=== PATIENT | male | born 1985 | race African-American/Black ===

== ENCOUNTER 2025-07-29 08:45 | Outpatient (CLI) | payer BC, SELFPAY ==
--- NOTE | 2025-07-29 09:15 | NEURO_ITS ---
Impression: # Non-insulin dependent diabetic complains of numbness of feet. ? # Normal motor/sensory Nerve Conduction Study. ? # Normal Needle/ EMG exam. ? 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 Nerve Conduction Studies ?Stim Site NR Peak (ms) P-T Amp (?V) Site1 Site2 Delta-P (ms) Dist (cm) Hardeep (m/s) Left Median Anti Sensory (2-3nd Digit) Wrist ? 3.7 49.1 Wrist 2-3nd Digit 3.7 14.0 38 Wrist ? 3.8 37.4 Wrist 2-3nd Digit 3.7 14.0 38 Right Median Anti Sensory (2-3nd Digit) Wrist ? 3.9 41.0 Wrist 2-3nd Digit 3.9 14.0 36 Wrist ? 3.9 45.9 Wrist 2-3nd Digit 3.9 14.0 36 Left Radial Anti Sensory (Base 1st Digit) Wrist ? 2.4 13.4 Wrist Base 1st Digit 2.4 0.0 Right Radial Anti Sensory (Base 1st Digit) Wrist ? 2.9 13.5 Wrist Base 1st Digit 2.9 0.0 Left Sup Fibular Anti Sensory (Ant Lat Mall) 14 cm ? 3.2 15.1 14 cm Ant Lat Mall 3.2 16.0 50 Right Sup Fibular Anti Sensory (Ant Lat Mall) 14 cm ? 3.6 10.1 14 cm Ant Lat Mall 3.6 16.0 44 Left Sural Anti Sensory (Lat Mall) Calf ? 3.4 26.2 Calf Lat Mall 3.4 16.0 47 Right Sural Anti Sensory (Lat Mall) Calf ? 3.6 15.2 Calf Lat Mall 3.6 16.0 44 Left Ulnar Anti Sensory (5th Digit) Wrist ? 2.8 38.9 Wrist 5th Digit 2.8 14.0 50 Right Ulnar Anti Sensory (5th Digit) Wrist ? 2.8 31.3 Wrist 5th Digit 2.8 14.0 50 ?Stim Site NR Onset (ms) O-P Amp (mV) Site1 Site2 Delta-0 (ms) Dist (cm) Hardeep (m/s) Left Median Motor (Abd Poll Brev) Wrist ? 4.1 7.5 Elbow Wrist 5.5 31.0 56 Elbow ? 9.6 9.0 Right Median Motor (Abd Poll Brev) Wrist ? 4.5 6.9 Elbow Wrist 6.4 33.0 52 Elbow ? 10.9 5.9 Left Peroneal Motor (Vastus Med) Ankle ? 4.9 0.3 Popit Ankle 9.3 47.0 51 Popit ? 14.2 0.8 Right Peroneal Motor (Vastus Med) Ankle ? 4.7 1.1 Popit Ankle 8.3 43.0 52 Popit ? 13.0 5.1 Left Tibial Motor (Abd Farfan Brev) Ankle ? 5.3 1.8 Knee Ankle 9.5 47.0 49 Knee ? 14.8 2.8 Right Tibial Motor (Abd Farfan Brev) Ankle ? 5.5 2.1 Knee Ankle 9.3 44.0 47 Knee ? 14.8 1.1 Left Ulnar Motor (Abd Dig Minimi) Wrist ? 2.7 7.9 A Elbow Wrist 6.1 34.0 56 A Elbow ? 8.8 6.3 B Elbow Wrist 5.1 28.0 55 B Elbow ? 7.8 6.8 Right Ulnar Motor (Abd Dig Minimi) Wrist ? 3.0 7.2 A Elbow Wrist 6.4 34.0 53 A Elbow ? 9.4 6.1 B Elbow Wrist 5.2 28.0 54 B Elbow ? 8.2 5.9 F Wave Studies ?NR F-Lat (ms) L-R F-Lat (ms) Left Median (Mrkrs) (Abd Poll Brev) ? 32.44 0.95 Right Median (Mrkrs) (Abd Poll Brev) ? 33.39 0.95 Left Peroneal (Mrkrs) (EDB) ? 57.97 2.88 Right Peroneal (Mrkrs) (EDB) ? 55.09 2.88 Left Tibial (Mrkrs) (Abd Hallucis) ? 57.19 Right Tibial (Mrkrs) (Abd Hallucis)??? NO RESPONSE NR Left Ulnar (Mrkrs) (Abd Dig Min) ? 34.74 0.00 Right Ulnar (Mrkrs) (Abd Dig Min) ? 34.74 0.00 Electromyography ?Side Muscle Nerve Root Ins Act Fibs Amp Dur Recrt Comment Right 1stDorInt Ulnar C8-T1 Nml Nml Nml Nml Nml Right Ext Indicis Radial (Post Int) C7-8 Nml Nml Nml Nml Nml Right Ext Digitorum Radial (Post Int) C7-8 Nml Nml Nml Nml Nml Right BrachioRad Radial C5-6 Nml Nml Nml Nml Nml Right PronatorTeres Median C6-7 Nml Nml Nml Nml Nml Right Abd Poll Brev Median C8-T1 Nml Nml Nml Nml Nml Right ABD Dig Min Ulnar C8-T1 Nml Nml Nml Nml Nml Right FlexPolLong Median (Ant Int) C7-8 Nml Nml Nml Nml Nml Right Abd Poll Long Radial (Post Int) C7-8 Nml Nml Nml Nml Nml Right AntTibialis Dp Br Fibular L4-5 Nml Nml Nml Nml Nml Right Gastroc Tibial S1-2 Nml Nml Nml Nml Nml Right Fibularis Long Sup Br Fibular L5-S1 Nml Nml Nml Nml Nml Right Flex Dig Long Tibial L5-S2 Nml Nml Nml Nml Nml Right Ext Dig Brev Dp Br Fibular L5, S1 Nml Nml Nml Nml Nml Right QuadratusFem QuadFemoris L4-5, S1 Nml Nml Nml Nml Nml Left AntTibialis Dp Br Fibular L4-5 Nml Nml Nml Nml Nml Left Gastroc Tibial S1-2 Nml Nml Nml Nml Nml Left Fibularis Long Sup Br Fibular L5-S1 Nml Nml Nml Nml Nml Left Flex Dig Long Tibial L5-S2 Nml Nml Nml Nml Nml Left Ext Dig Brev Dp Br Fibular L5, S1 Nml Nml Nml Nml Nml Left QuadratusFem QuadFemoris L4-5, S1 Nml Nml Nml Nml Nml Left 1stDorInt Ulnar C8-T1 Nml Nml Nml Nml Nml Left Ext Indicis Radial (Post Int) C7-8 Nml Nml Nml Nml Nml Left Ext Digitorum Radial (Post Int) C7-8 Nml Nml Nml Nml Nml Left BrachioRad Radial C5-6 Nml Nml Nml Nml Nml Left PronatorTeres Median C6-7 Nml Nml Nml Nml Nml Left Abd Poll Brev Median C8-T1 Nml Nml Nml Nml Nml Left ABD Dig Min Ulnar C8-T1 Nml Nml Nml Nml Nml Left FlexPolLong Median (Ant Int) C7-8 Nml Nml Nml Nml Nml Left Abd Poll Long Radial (Post Int) C7-8 Nml Nml Nml Nml Nml
--- OUTSIDE RECORDS SUMMARY | 2025-07-29 09:32 | XMS_ITS | Clinical Summary ---
Author Organization [facility] lin Address [address] [place] [address] Care Team Providers Care Physical Fitness Teacher Name Role Phone Pcp, Elsy Primary Care Provider [phone] Social History Tobacco Use Types Packs/Day Years Used Date Smoking Tobacco: Never Assessed Sex and Gender Information Value Date Recorded Sex Assigned at Not on file Legal Sex Male 8:07 PM EDT Gender Identity Not on file Sexual Orientation Not on file Plan of Treatment Not on file Medical Devices Not on file Care Teams Physical Fitness Teacher Relationship Specialty Start Date End Date Elsy Meek PCP - General Family Medicine 01/17/22
--- OUTSIDE RECORDS SUMMARY | 2025-07-29 09:32 | XMS_ITS | Encounter Summary ---
Author Organization [facility] Address [address] [place] [address] Care Team Providers Care Marketing Program Manager Name Role Phone Benny Ocasio MD Unavailable [phone] Markus Steele MD Unavailable Unavailable Pcp, [facility] Primary Care Provider Unavailable Ann Ryan APRN-CABIN SUPERVISOR Unavailable [phone] Moy Preciado MD Primary Care Provider Reason for Visit * Reason Comments Refill Request Encounter Details Date Type Department Care Team (Late st Contact Info) Description 12/29/2024 Refill [facility] - Internal Medicine [address] [address] Shawanda Mclain MD [address] [facility] [address] [place] [address] Refill Request Social History Tobacco Use Types Packs/Day Years Used Date Smoking Tobacco: Former Cigarettes 0.1 Q uit: 01/13/2016 Smokeless Tobacco: Never Alcohol Use Standard Drinks/Week Comments Not Currently 0 (1 standard drink = 0.6 oz pur e alcohol) rare PHQ-2 Answer Date Recorded Patient Health Questionnaire-2 Score 0 11/14/2023 Hunger Vital Sign Answer Date Recorded Within the past 12 months, y ou worried that your food would run out before you got the money to buy more. Never true 12/31/19 22 Within the past 12 months, t he food you bought just didn't last and you didn't have money to get more. 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 Answer Date of Assessment Author No 08/21/2024 2:26 PM Love Patino RN * Is person blind or have serious difficulty seeing? Answer Date of Assessment Author No 08/21/2024 2:26 PM Love Patino RN * Does person have serious difficulty walking/climbing stairs? Answer Date of Assessment Author No 08/21/2024 2:26 PM Love Patino RN * Does person have difficulty dressing/bathing? Answer Date of Assessment Author No 08/21/2024 2:26 PM Love Patino RN * Does person have difficulty doing errands alone? Answer Date of Assessment Author No 08/21/2024 2:26 PM Love Patino RN documented as of this encounter Mental Status * Does person have difficulty concentrating/remembering/making decisions? Answer Entry Date Author No 08/21/2024 2:26 PM Love Patino RN documented in this encounter Plan of Treatment Upcoming Encounters Date Type Department Care Team (Late st Contact Info) Description 08/21/2025 9:00 AM PROFESSOR OF SOCIOLOGY Office Visit [facility] [address] [facility] [address] [place] [address] Carol Celeste, CORPORATE DEVELOPMENT INTERN-CABIN SUPERVISOR [id number] [facility] [address] [place] [address] 06/30/2026 3:45 PM PROFESSOR OF SOCIOLOGY Office Visit [facility] - Pulmonology [address], [address] [place] [address] Benny Ocasio MD [address] [facility] [address] [place] [address] documented as of this encounter Goals Goal Patient Goal Type Associated Problems Recent Progress Patient-Stated? Author Blood Pressure < 140/90 Blood Pressure 124/80(2024 3:14 PM PROFESSOR OF SOCIOLOGY) No Hanny Nava MA HEMOGLOBIN A1C < 7.0 Result Component 5.9( 11:00 AM PROFESSOR OF SOCIOLOGY) No Hanny Nava MA documented as of this encounter Visit Diagnoses Not on filedocumented in this encounter Care Teams Marketing Program Manager Relationship Specialty Start Date End Date Pcp, [facility]- PCP - General 06/13/24 05/25/25 Ann Ryan APRN-CABIN SUPERVISOR [id number] [email or web address] [address] [place] [address] PCP - Attributed-[employer] 11/12/24 07/01/25 Moy Preciado MD [address] [place] [address] [phone] PCP - General Internal Medicine 05/26/25 Benny Ocasio MD [address] [place] [address] Internal Medicine Sleep Medicine 03/14/14 Markus Steele MD [address] [place] [address] Ophthalmology 08/29/17 documented as of this encounter
--- OUTSIDE RECORDS SUMMARY | 2025-07-29 09:32 | XMS_ITS | Clinical Summary ---
Author Organization [facility] Address [address] [place] [address] Care Team Providers Care Adult Education Manager Name Role Phone Benny Ocasio MD Unavailable [phone] Markus Steele MD Unavailable Unavailable Moy Preciado MD Primary Care Provider Source Comments [facility],non-owned Affiliates and Associated Physician Practices is amultiple site organization consisting of ambulatory clinics and hospital sitesin [place], [place], [place] and [place]. This disclosure is being madepursuant to the Care Everywhere program and may not contain all information available regarding this patient. Last updated [email or web address] Allergies No known active allergies Medications * Be aware that medications may not be up to date on this document. Alwaysverify current medications with the patient. Lancets (ONETOUCH DELICA PLUS 33G EXTRA FINE LANCET)Indications :Type 2 diabetes mellitus with hyperglycemia, without long-term current use of insulin (HCC) USE DIRECTED 100 Each 3 05/13/20 22 Active cyclobenzaprine (Flexeril) 10 MG tablet Take 0.5 (one-half) tablet to 1 (one) tablet by mouth 3 times daily as needed for Muscle Spasms 90 tablet 1 04/07/20 23 Active atorvastatin (Lipitor) 20 MG tabletIndications: Hyperlipidemia, unspecified hyperlipidemia type TAKE 1 TABLET BY MOUTH EVERY DAY 90 tablet 1 02/06/20 24 Active losartan (Cozaar) 50 MG tabletIndications: Essential hypertension Take 1 (one) tablet by mouth once daily 90 tablet 1 08/16/19 25 Active fluticasone propionate (Flonase) 50 MCG/ACT nasal spray 1 spray to each nostril twice per day 16 g 1 08/16/19 25 Active acetaminophen (Tylenol) 160 MG/5ML solution Take 31.25 mL by mouth every 8 hours 08/22/19 25 Active ondansetron, disintegrating, (Zofran ODT) 4 MG tablet Take 1 (one) tablet by mouth every 6 hours as needed for Nausea/Vomiting Allow tablet to dissolve on the tongue 20 tablet 5 11:40 AM UNIX MANAGER 08/22/19 25 Active magnesium hydroxide (Milk Of Magnesia) 400 MG/5ML suspension Take 15 mL by mouth as needed for Constipation 08/22/19 25 Active ALPRAZolam (Xanax) 0.25 MG tablet Take 1 (one) tablet by mouth nightly as needed for Anxiety Active vitamin D, ergocalciferol, (Drisdol) 1.25 MG (16373 UT) capsule TAKE 1 CAPSULE BY MOUTH ONE TIME PER WEEK FOR LOW VITAMIN D. 02/14/20 25 Active omeprazole (PriLOSEC) 20 MG capsule Take 1 (one) capsule by mouth 2 times daily, before breakfast and supper -- to start after surgery 60 capsule 5 02/21/20 25 Active tirzepatide (Mounjaro) 7.5 MG/0.5ML injectionIndicatio ns:Controlled type 2 diabetes mellitus without complication, without long-term current use of insulin ([facility]) Inject 7.5 (seven and one-half) mg subcutaneously every 7 days (once a week) for 28 days 2 mL 04/10/20 25 Active tirzepatide (Mounjaro) 10 MG/0.5ML injectionIndicatio ns:Controlled type 2 diabetes mellitus without complication, without long-term current use of insulin ([facility]),Bariatric surgery status,Gastroesoph ageal reflux disease without esophagitis Inject 10 (ten) mg subcutaneously every 7 days (once a week) for 28 days 2 mL 04/29/20 25 Active famotidine (Pepcid) 20 MG tabletIndications: Bariatric surgery status,Gastroesoph ageal reflux disease without esophagitis TAKE 1 TABLET BY MOUTH EVERYDAY AT BEDTIME 30 tablet 2 05/01/20 25 Active pantoprazole EC (Protonix) 40 MG tabletIndications: Bariatric surgery status,Gastroesoph ageal reflux disease without esophagitis TAKE 1 (ONE) TABLET BY MOUTH 2 TIMES DAILY 60 tablet 2 05/01/20 25 Active vitamin E (Tocopheryl) 400 UNIT capsule Take 1 (one) capsule by mouth once daily 30 capsule 2 05/07/20 25 Active phytonadione OTC (Vitamin K) 100 MCG tablet Take 1 (one) tablet by mouth daily with food 30 tablet 2 05/07/20 25 Active tirzepatide (Mounjaro) 12.5 MG/0.5ML injectionIndicatio ns:Morbid obesity (HCC),BMI 45.0-49.9, adult ([facility]),Controlled type 2 diabetes mellitus without complication, without long-term current use of insulin ([facility]) INJECT THE CONTENTS OF 1 PEN UNDER THE SKIN ONCE EVERY 7 DAYS 2 mL 06/25/20 25 Active Vitamin K 100 MCG TABS Take 1 (one) tablet by mouth once 05/10/20 25 Active E-400 180 MG (400 UNIT) capsule Take 1 (one) capsule by mouth once daily 05/07/20 25 Active tirzepatide (Mounjaro) 15 MG/0.5ML injectionIndicatio ns:Type 2 Diabetes Mellitus Inject 15 (fifteen) mg subcutaneously every 7 days (once a week) Reasons: Type 2 Diabetes 6 mL 2 07/08/20 25 Active Active Problems Problem Noted Date Diagnosed Date Morbid obesity 08/21/2024 Obesity hypoventilation syndrome 11/25/2019 Hyperlipidemia 06/29/2016 Nocturnal hypoxemia 04/13/2015 HTN (hypertension) 12/10/2013 Diet-controlled diabetes mellitus 02/18/2013 Onychomycosis 11/07/2012 BEN treated with BiPAP 11/07/2012 Resolved Problems Problem Noted Date Diagnosed Date Resolved Date BMI 50.0-59.9, adult 12/29/2021 025 BMI 60.0-69.9, adult 11/07/2012 022 Elevated BP 11/07/2012 12/10/2013 Encounters Date Type Department Care Team Description 07/08/2025 3:20 PM UNIX MANAGER Office Visit [facility] [address] [place] [address], [facility] [address] [place] [address] Kiko Garcia MD Controlled type 2 diabetes mellitus without complication, without long-term current use of insulin (HCC) (Primary Dx); Other specified intestinal malabsorption (HCC); S/P bariatric surgery 07/01/2025 3:15 PM UNIX MANAGER Office Visit [facility] - Pulmonology [address] [facility], [address] [place] [address] Benny Ocasio MD BEN treated with BiPAP (Primary Dx); Obesity hypoventilation syndrome (HCC); Nocturnal hypoxemia; Morbid obesity (HCC); Primary hypertension 06/25/2025 Refill [facility] [address] [place] [address], [facility] [address] [place] [address] Kiko Garcia MD Refill Request 05/26/2025 7:23 AM CDT - 05/26/2025 11:59 PM CDT Hospital Encounter [facility] Imaging Services - Ultrasound [address] [place] [address] Carol Celeste APRN-CNP Discharge Disposition: Home or Self Care 05/23/2025 Travel 05/23/2025 Orders Only [facility] [address] [place] [address], [facility] [address] [place] [address] Carol Celeste APRN-CNP Morbid obesity (HCC) ; Bariatric surgery status; Elevated bilirubin 05/07/2025 3:40 PM CDT Office Visit [facility] [address] [place] [address], [facility] [address] [place] [address] Kiko Garcia MD Controlled type 2 diabetes mellitus without complication, without long-term current use of insulin (HCC) (Primary Dx); Morbid obesity (HCC); BMI 45.0-49.9, adult (HCC); S/P bariatric surgery 05/01/2025 Refill [facility] [address] [place] [address], [facility] [address] [place] [address] Huckstep, Carol Laurie, GRADER PATROL-TELECOMMUNICATIONS REPAIRER Refill Request from Last 3 Months Immunizations Immunization Administration Dates Next Due Covid Moburst primary monoval ent 12+ yr 0.3mL Purple cap 12/18/2020,11/27/2020 DT (AGE 0-7) 01/31/1989, 5,1984,1983 HEP B VACCINE 03/14/2000 HEP B VACCINE, ADULT 3 DOSE 08/29/2017, 4,12/10/2013 HEP B VACCINE, PED/ADOL 03/14/2000 Hep A Peds 3 Dose 03/14/2000 HepB Unspecified formulation 12/21/1998,02/24/19 98 INFLUENZA VACCINE 04/28/2019 INFLUENZA VACCINE, CELL CULT URE, QUADR. (FLUCELVAX QUADRIVALENT; 6MO+) (CCIIV4) 05/19/2022,08/31/2021 INFLUENZA VACCINE, QUADR. (F LUZONE; FLULAVAL; FLUARIX; AFLURIA QUADRIVALENT; 6MO+), 0.5 ML (IIV4) 07/24/2020,05/17/2017,09/19/2014 MMR 05/27/1993,08/23/1988 PNEUMOCOCCAL PCV20 CONJ VAC IM 01/05/2022 PNEUMOCOCCAL PPSV23 02/18/2013 POLIO OPV 01/31/1989,1984,1984 TD (AGE 7-ADULT) 02/24/1998 TDAP (7yrs+) 07/11/2023,02/18/2013 Family History Medical History Relation Name Comments Diabetes Father Hypertension Father Sarcoidosis Father Cancer Maternal Grandfather prostat e Cancer Maternal Grandmother Diabetes Maternal Grandmother Thyroid Disease Mother sp resection CAD (Coronary Artery Disease) Paternal Grandfather Diabetes Paternal Grandmother Ankylosing Spondylitis Sister Relation Name Status Comments Father Maternal Grandfather Maternal Grandmother Mother Paternal Grandfather Paternal Grandmother Sister Social History Tobacco Use Types Packs/Day Years Used Date Smoking Tobacco: Never Smokeless Tobacco: Never Tobacco Cessation:Counseling Given: Not Answered Alcohol Use Standard Drinks/Week Comments Not Currently [...] PM CDT Legal Sex Male 6:26 AM UNIX MANAGER Gender Identity Male 10/30/2020 9:13 PM CDT Sexual Orientation Not on file 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 Not on file Not on file Last Filed Vital Signs Vital Sign Reading Time Taken Comments Blood Pressure 124/80 07/08/2025 3:14 PM UNIX MANAGER Pulse 88 07/08/2025 3:14 PM UNIX MANAGER Temperature 36.2 C (97.1 F) 07/08/2025 3:14 PM UNIX MANAGER Respiratory Rate 20 08/22/2024 7:49 AM UNIX MANAGER Oxygen Saturation 98% 07/08/2025 3:14 PM UNIX MANAGER Inhaled Oxygen Concentration - - Weight 151.2 kg (333 lb 6.4 oz) 07/08/2025 3:14 PM UNIX MANAGER Height 182.9 cm (6') 07/08/2025 3:14 PM UNIX MANAGER Body Mass Index 45.22 07/08/2025 3:14 PM UNIX MANAGER Plan of Treatment Upcoming Encounters Date Type Department Care Team (Late st Contact Info) Description 08/21/2025 9:00 AM UNIX MANAGER Office Visit [facility] [address] [facility] [facility], [address] [place] [address] Carol Celeste, GRADER PATROL-[facility] [address] [facility] [address] [place] [address] 06/30/2026 3:45 PM UNIX MANAGER Office Visit [facility] - Pulmonology [address], [address] [place] [address] Benny Ocasio MD [address] [facility] [address] [place] [address] Health Maintenance Due Date Last Done Comments HPV VACCINE (1 - 3-dose SCDM series) 2011 DIABETES-FOOT EXAM WITH MONOFILAMENT 01/05/2023 01/05/2022, 05/07/2018, 06/29/2016, Additional history exists DIABETES RETINOPATHY SCREENING 07/20/2023 07/20/2021, 07/28/2017 DEPRESSION SCREENING 08/14/2024 11/14/2023, 10/11/2022, 01/05/2022 DIABETES - URINE PROTEIN SCREENING 08/14/2024 12/29/2023, 06/29/2016, 03/07/2014, Additional history exists DIABETES-HGB A1C 02/04/2025 08/06/2024, , 10/11/2022, Additional history exists COVID-19 VACCINE ( season) 2025 08/31/2021, 12/18/2020, 11/27/2020 INFLUENZA VACCINE (#1) 2025 , 08/31/2021, 07/24/2020, Additional history exists DIABETES-SERUM CREATININE 04/03/20262024, 08/22/2024, 08/22/2024, Additional history exists DTAP/TDAP/TD VACCINES (8 - Td or Tdap) 07/11/2033 07/11/2023, 02/18/2013, 02/24/1998, Additional history exists ZOSTER VACCINE (1 of 2) 2034 HEPATITIS C SCREENING Completed 11/12/2012 HIV SCREENING Completed 01/17/2013, 11/12/2012 HEPATITIS B VACCINE Completed 08/29/2017, 03/14/2014, 12/10/2013, Additional history exists PNEUMOCOCCAL VACCINE Completed 01/05/2022, 02/19/20 13 HIB VACCINE Aged Out No longer eligi ble based on patient's age to complete this topic MENINGOCOCCAL (Group B) VACCINE SHARED DECISION-MAKING Aged Out No longer eligible based on patient's age to complete this topic MENINGOCOCCAL GROUPS A/C/Y/W VACCINE Aged Out No longer eligible based on patient's age to complete this topic Goals Goal Patient Goal Type Associated Problems Recent Progress Patient-Stated? Author Blood Pressure < 140/90 Blood Pressure 124/80(2024 3:14 PM UNIX MANAGER) No Hanny Nava MA HEMOGLOBIN A1C < 7.0 Result Component 5.9( 11:00 AM UNIX MANAGER) No Hanny Nava MA Procedures Procedure Name Priority Date/Time Associated Diagnosis Comments US ABDOMEN LIMITED Routine 05/26/2025 7: 45 AM CDT Morbid obesity (HCC) Bariatric surgery status Elevated bilirubin COMPREHENSIVE METABOLIC PANEL Routine 04/03/2025 1:43 PM CDT Morbid obesity (HCC) Bariatric surgery status Vitamin deficiency Vitamin D deficiency Vitamin B deficiency Mineral deficiency Intestinal malabsorption, unspecified type (HCC) HEMOGLOBIN A1C STAT 08/06/2024 11:00 AM UNIX MANAGER Preop testing MICROALB/CREAT RATIO URINE RANDOM PANEL Routine 12/29/2023 3:31 PM CDT Type 2 diabetes mellitus with other specified complication, without long-term current use of insulin EYE EXAM 07/20/2021 HIV 1/0/2 AB W/REFLEX TO [facility] 01/17/2013 2:49 PM CDT HEPATITIS C ANTIBODY Routine 11/12/2012 3:33 PM CDT Screen for STD (sexually transmitted disease) from Last 3 Months or Most Recently Relevant to Health Maintenance Results * US Abdomen Limited (05/26/2025 7:45 AM CDT) Anatomical Region Laterality Modality Abdomen Ultrasound 05/26/2025 10:3 0 AM CDT Impressions 05/26/2025 10:40 AM CDT IMPRESSION: 1. No discrete hepatic lesion or intrahepatic biliary dilation. Patent hepatic vasculature. 2. No evidence of cholelithiasis or acute cholecystitis. 3. Right renal cyst. > Interpreting Provider: Donavon Spears DO on 05/26/2025 10:40 AM Narrative 05/26/2025 10:40 AM CDT PROCEDURE: US ABDOMEN LIMITED, DATE/TIME OF EXAM: 05/26/2025 7:51 AM, LOCATION [facility] INDICATION: E66.01: Morbid obesity (HCC) Z98.84: Bariatric surgery status R17: Elevated bilirubin COMPARISON: None available FINDINGS: The liver is normal in echotexture. No discrete hepatic lesion or intrahepatic biliary dilation is seen. Color Doppler evaluation demonstrates patency of the hepatic and portal veins. The gallbladder is distended with fluid. No gallstones or pericholecystic fluid is seen. The gallbladder wall is normal in thickness. Sonographic Stover's sign is negative. The common bile duct is nondilated, measuring 5 mm. The right kidney measures 13.1 x 5.7 x 6.1 cm. There is a cyst in the superior pole of the kidney measuring 1.9 x 1.6 x 1.9 cm. Limited views of the right kidney reveal no evidence of nephrolithiasis or hydronephrosis. The visible pancreas is normal in echogenicity. No ascites is present. Procedure Note Donavon Spears MD - 05/26/2025 PROCEDURE: US ABDOMEN LIMITED, DATE/TIME OF EXAM: 05/26/2025 7:51 AM, LOCATION [facility] INDICATION: E66.01: Morbid obesity (HCC) Z98.84: Bariatric surgery status R17: Elevated bilirubin COMPARISON: None available FINDINGS: The liver is normal in echotexture. No discrete hepatic lesion or intrahepatic biliary dilation is seen. Color Doppler evaluation demonstrates patency of the hepatic and portal veins. The gallbladder is distended with fluid. No gallstones orpericholecystic fluid is seen. The gallbladder wall is normal in thickness. Sonographic Stover's sign is negative. The common bile duct is nondilated, measuring5 mm. The right kidney measures 13.1 x 5.7 x 6.1 cm. There is a cyst in the superior pole of the kidney measuring 1.9 x 1.6 x 1.9 cm. Limited viewsof the right kidney reveal no evidence of nephrolithiasis or hydronephrosis. The visible pancreas is normal in echogenicity. No ascites is present. IMPRESSION: 1. No discrete hepatic lesion or intrahepatic biliary dilation. Patent hepatic vasculature. 2. No evidence of cholelithiasis or acute cholecystitis. 3. Right renal cyst. > Interpreting Provider: Donavon Spears DO on 05/26/2025 10:40 AM us Carol Laurie Celeste GRADER PATROL-TELECOMMUNICATIONS REPAIRER US ORDERABLES F inal Result * (ABNORMAL) COMPREHENSIVE METABOLIC PANEL (04/03/2025 1:43 PM CDT) Glucose 86 70 - 99 mg/dL [facility] ACCOUNT BILL BUN 14 6 - 24 mg/dL [facility] ACCOUNT BILL Creatinine 1.25 0.76 - 1.27 mg/dL [facility] ACCOUNT BILL eGFR by CKD-EPI 75 >59 mL/min/1.7 3 [facility] ACCOUNT BILL BUN/Creatinine Ratio 11 9 - 20 [facility] ACCOUNT BILL Sodium 145(H) 134 - 144 mmol/L [facility] ACCOUNT BILL Potassium 3.9 3.5 - 5.2 mmol/L [facility] ACCOUNT BILL Chloride 107(H) 96 - 106 mmol/L [facility] ACCOUNT BILL CO2 22 20 - 29 mmol/L [facility] ACCOUNT BILL Calcium 9.8 8.7 - 10.2 mg/dL [facility] ACCOUNT BILL Protein Total 7.4 6.0 - 8.5 g/dL [facility] ACCOUNT BILL Albumin 4.5 4.1 - 5.1 g/dL [facility] ACCOUNT BILL Globulin Total 2.9 1.5 - 4.5 g/dL [facility] ACCOUNT BILL Bilirubin Total 1.6(H) 0.0 - 1.2 mg/dL [facility] ACCOUNT BILL Alkaline Phosphatase 76 44 - 121 IU/L [facility] ACCOUNT BILL AST 30 0 - 40 IU/L [facility] ACCOUNT BILL ALT 25 0 - 44 IU/L [facility] ACCOUNT BILL Blood BLOOD SPECIMEN / Unknown 04/03/2025 1:43 PM CDT 04/03/2025 Narrative [facility] ACCOUNT BILL - 04/04/2025 10:10 AM CDT Performed at: 01 - [address] [id number] Rn Or Lvn: Isac Fontana PhD, Phone: [phone] Carol Celeste GRADER PATROL-TELECOMMUNICATIONS REPAIRER LAB - CHEMISTRY O RDERABLES Final Result [facility] ACCOUNT BILL [address] [place] [address] * (ABNORMAL) HEMOGLOBIN A1C (08/06/2024 11:00 AM UNIX MANAGER) Hemoglobin A1c 5.9(H) <5.7 % 08/06/2024 11:14 AM UNIX MANAGER [facility] Estimated Average Glucose 123 mg/dL 08/06/2024 11:14 AM UNIX MANAGER [facility] Blood BLOOD SPECIMEN / Unknown Venipuncture / Unknown 08/06/2024 11:00 AM UNIX MANAGER 08/06/2024 11:05 AM UNIX MANAGER Narrative [facility] - 08/06/2024 11:14 AM UNIX MANAGER HbA1c Interpretation: Normal: < 5.7% Pre-diabetes: 5.7-6.4% Diabetes: Equal to or greater than 6.5% Test results diagnostic of diabetes should be repeated for confirmation. Treatment target values recommended by ADA and other clinical organizations should be used to evaluate metabolic control in patients. This test should not replace glucose testing for patients with Type 1 diabetes, pediatric patients, or women. Falsely low HbA1c results may be observed in patients with clinical conditions that shorten erythrocyte life span or decrease mean erythrocyte age such as the presence of unstable hemoglobin variants, elevated hemoglobin F level or other causes of hemolytic anemia. HbA1c may not accurately reflect glycemic control when clinical conditions that affect erythrocyte survival are present. Severe Iron deficiency anemia may yield falsely high results. Hemoglobin A1c assay should not be used to diagnose or monitor diabetes in patients with malignancy, recent blood transfusion, chronic kidney or liver disease. This method may yield falsely low results when hemoglobin (HbF) exceeds 5% in the specimen. The Bruner Alinity assay for the measurement of HbA1c is a National Glycohemoglobin Standardization Program (NGSP) certified method. us Kiko Garcia MD LAB - CHEMISTRY ORDERABLES F inal Result [facility] [address] [place] [address] * MICROALB/CREAT RATIO URINE RANDOM PANEL (12/29/2023 3:31 PM CDT) Creatinine Urine 212.92 mg/dL [facility] ACCOUNT BILL Microalbumin Urine 1.4 mg/dL [facility] ACCOUNT BILL Microalbumin/Crea tinine Ratio 6 <30 mg/g [facility] ACCOUNT BILL Urine URINE SPECIMEN OBTAINED BY CLEAN CATCH PROCEDURE / Unknown 12/29/2023 3:31 PM CDT 12/29/2023 Narrative Resulting Agency Comment Lab Testing performed at: [address] [place] [id number] us Shawanda Mclain MD LAB - URINE CHEMISTRY ORDERABLES Final Result [facility] ACCOUNT BILL [address] [place] [address] * EYE EXAM (07/20/2021) Anatomical Region Laterality Modality Other 07/20/2021 Narrative 07/20/2021 Ordered by an unspecified provider. us Scanned Document SCANNING ONLY Final Result * HIV 1/0/2 AB W/REFLEX TO [facility] (PO REF LAB) (01/17/2013 2:49 PM CDT) HIV-1/O/2 Antibody Index Value <1.00 <1.00 [facility] INSURANCE BILL Comment:Index Value: Specime n reactivity relative to the negative cutoff. HIV-1/HIV-2 Non Reactive Non Reactive [facility] INSURANCE BILL [facility] Reflex [facility] INSURANCE BILL Comment:Pooled BASIA HIV Testi ng is being performed on this specimen. 01/17/2013 2:49 PM CDT 01/17/2013 6:36 PM CDT Narrative Resulting Agency Comment [facility] [address] [facility] [id number] us Ila Diego MD LAB - SEROLOGY ORDERABLES Final Result Performing Organization Address City/[facility]/ZIP Co de Phone Number [facility] INSURANCE BILL [address] [place] [address] * HEPATITIS C ANTIBODY (11/12/2012 3:33 PM CDT) Hepatitis C Virus Antibody <0.1 0.0 - 0.9 s/co ratio [facility] INSURANCE BILL Comment: Negative: < 0.8 Indeterminate 0.8 - 0.9 Positive: > 0.9 . In order to reduce the incidence of a false positive result, the CDC recommends that all s/co ratios between 1.0 and 10.9 be confirmed with additional RIBA or PCR testing. Blood specimen (specimen) BLOOD SPECIMEN / Unknown 11/12/2012 3:33 PM CDT 11/12/2012 6:06 PM CDT Narrative Resulting Agency Comment [facility] [address] [facility] [id number] Ila Diego MD LAB - CHEMISTRY ORDERABLES Final Result [facility] INSURANCE BILL [address] [place] [address] from Last 3 Months or Most Recently Relevant to Health Maintenance Insurance ANTHEM ANTHEM Advance Directives * Full Code (Latest Code Status on File) Date Activated Date Inactivated Comments 08/21/2024 11:21 AM 08/22/2024 6:22 PM * Full Code Date Activated Date Inactivated Comments 12/29/2021 6:00 PM 12/30/2021 6:26 PM Care Teams Adult Education Manager Relationship Specialty Start Date End Date Moy Preciado MD [address] [place], [place] [id number] PCP - General Internal Medicine 05/26/25 Benny Ocasio MD [address] [place] [address] Internal Medicine Sleep Medicine 03/14/14 Markus Steele MD [address] [place] [address] Ophthalmology 08/29/17
--- OUTSIDE RECORDS SUMMARY | 2025-07-29 09:32 | XMS_ITS | Encounter Summary ---
Author Organization [facility] Address [address] [place] [address] Care Team Providers Care Entry Level Sales Representative Name Role Phone Benny Ocasio MD Unavailable [phone] Markus Steele MD Unavailable Unavailable Ann Ryan TURNING SANDER TENDER-HEEL TURNER Unavailable [phone] Pcp, [facility] Primary Care Provider Unavailable Ann Ryan TURNING SANDER TENDER-HEEL TURNER Unavailable [phone] Moy Preciado MD Primary Care Provider Reason for Visit * Reason Onset Date Comments MEDICATION REFILL 08/09/2024 Encounter Details Date Type Department Care Team (Late st Contact Info) Description 08/09/2024 Refill [facility] - Internal Medicine [address] [phone] Shawanda Mclain MD [address] [place], [place] [id number] [place] [phone] MEDICATION REFILL Social History Tobacco Use Types Packs/Day Years [...] PM CDT Legal Sex Male 6:26 AM SAFETY SITTER Gender Identity Male 10/30/2020 9:13 PM CDT Sexual Orientation Not on file 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 Answer Date of Assessment Author No 12/29/2021 3:46 PM CDT Ness Coronel RN * Is person blind or have serious difficulty seeing? Answer Date of Assessment Author No 12/29/2021 3:46 PM CDT Ness Coronel RN * Does person have serious difficulty walking/climbing stairs? Answer Date of Assessment Author No 12/29/2021 3:46 PM CDT Ness Coronel RN * Does person have difficulty dressing/bathing? Answer Date of Assessment Author No 12/29/2021 3:46 PM FLORAT Ness Coronel RN * Does person have difficulty doing errands alone? Answer Date of Assessment Author No 12/29/2021 3:46 PM CDT Ness Coronel RN documented as of this encounter Mental Status * Does person have difficulty concentrating/remembering/making decisions? Answer Entry Date Author No 12/29/2021 3:46 PM Ness Moya RN documented in this encounter Plan of Treatment Upcoming Encounters Date Type Department Care Team (Late st Contact Info) Description 08/21/2025 9:00 AM SAFETY SITTER Office Visit [facility] [id number] [facility], [facility] [address] [phone] Carol Celeste APRN-HEEL TURNER [id number] [place] [phone] 06/30/2026 3:45 PM SAFETY SITTER Office Visit [facility] - Pulmonology [address] [facility], [address] [place] [address] Benny Ocasio MD [address] [facility] [address] [place] [phone] documented as of this encounter Goals Goal Patient Goal Type Associated Problems Recent Progress Patient-Stated? Author Blood Pressure < 140/90 Blood Pressure 124/80(2024 3:14 PM SAFETY SITTER) No Hanny Nava MA HEMOGLOBIN A1C < 7.0 Result Component 5.9( 11:00 AM SAFETY SITTER) No Hanny Nava MA documented as of this encounter Visit Diagnoses Diagnosis Essential hypertension documented in this encounter Care Teams Entry Level Sales Representative Relationship Specialty Start Date End Date Ann Ryan APRN-HEEL TURNER [id number] [place], [place] [phone] PCP - Attributed-[place] [employer] 02/12/24 10/01/24 Pcp, [facility] PCP - General 06/13/24 05/25/25 Ann Ryan APRN-HEEL TURNER [address] [place] [address] PCP - Attributed[employer] [employer] 11/12/24 07/01/25 Moy Preciado MD [address] [place] [phone] PCP - General Internal Medicine 05/26/25 Benny Ocasio MD [address] [facility] [address] [place] [address] Internal Medicine Sleep Medicine 03/14/14 Markus Steele MD [employer] [place] [id number] Ophthalmology 08/29/17 documented as of this encounter
== END 2025-07-29 08:46 | disposition home or self-care (01) ==
LOC: ANHNEURO 08:49
PROVIDERS: PCP Internal Medicine Infectious Disease; Visit Provider Internal Medicine Infectious Disease
DX: G62.9 Polyneuropathy, unspecified (principal); E11.9 Type 2 diabetes mellitus without complications; R20.0 Anesthesia of skin
CPT/HCPCS: 95886; 95913